=== PATIENT | male | born 1935 | race Caucasian/White ===

== ENCOUNTER 2016-09-18 06:15 | Day surgery (SDC) | payer MEDICARE ==
[~2016-09-18] VITALS: Ht 177.8 cm; Wt 84.0 kg
[2016-09-18] VITALS (17 sets, daily range): BP systolic 85–126; BP diastolic 46–79; PULSE 65–91; RESP 7–19; O2SAT 94–99
[2016-09-18] MEDS: GENTAMICIN IV SCH ×2 (06:00→07:51)
[2016-09-18] MEDS: DEXTROSE 5% IV SCH ×2 (06:00→07:51)
[2016-09-18] MEDS: Vancomycin 1 Gm/200 mL NS Premix IV SCH ×2 (06:00→06:50)
[~2016-09-18 06:15] MED LIST: BUPR100T7 PO; LISI40TA PO; NEBI5TAB8 PO; SIMV10TA4 PO
[2016-09-18] MEDS ORDERED: fentaNYL-PF 50 mCg/mL 2 mL Inj ONE (06:16)
[2016-09-18] MEDS: Lactated Ringer's 1,000 ML IV SCH ×2 (06:34→07:36)
--- NOTE | 2016-09-18 06:59 | PCM.HPANE ---
Patient Data Date of Service: Sep 18, 2016 Surgeon Admitting Provider: Attending Provider:Patel Bermeo MD Primary Care Physician:Mau Hardy MD Other Provider:Kevin Arellano Anesthesia Reason for Visit Malfunction Of Penile Prosthesis Ht/WT & BMI Height (Feet): 5 Height (Inches): 10 Weight (Kilograms): 86.18 Body Mass Index 27.00 Allergies Coded Allergies: ciprofloxacin (Verified Allergy, Severe, HEADACHE AND BACK PAIN, 09/18/16) Past Anesthesia History Anesthesia History: Denies:: Anesthesia Reactions, Malignant Hyperthermia Diabetes History Hx Diabetes?: Yes Type of Diabetes: Diet Controlled Glycemic Control: Diet Controlled Current Bedside Blood Glucose: 108 MRSA MRSA: No Medications Blood Thinner: Aspirin Hypertension Medication: Yes Home Meds Incl Beta Hany: Yes Date Beta Hany Taken: Sep 18, 2016 Time Beta Hany Taken: 429 Previous Beta Hany Dose >24: Previous Dose <24 Hours Reported Medications [place]-3 Fatty Acids (Fish Oil)500 Mg Capsule.dr500 Mg PO DAILY 09/18/16 Lisinopril 10 Mg Wdlcfu89 Mg PO DAILY 30 Days Ref 0 09/18/16 Bupropion ER (Wellbutrin SR)100 Mg Tablet.er100 Mg PO DAILY Ref 0 09/11/16 Simvastatin 10 Mg Uqnbsc07 Mg PO HS Ref 0 09/11/16 Nebivolol (Bystolic)5 Mg Tablet5 Mg PO DAILY Ref 0 09/11/16 Discontinued Reported Medications Lisinopril 40 Mg Mwoqal00 Mg PO DAILY 30 Days Ref 0 09/11/16 [Phosphatidyl] No Conflict Dlaqw891 Mg PO DAILY 09/01/11 Cholecalciferol-Expunged Drug, Do Not Renew! (Vitamin D3-Expunged Drug, Do Not Renew!)5,000 Unit Tablet5,000 Unit PO DAILY 09/01/11 [Lipoic Acid] No Conflict Efjdl913 Mg PO DAILY 09/01/11 [Cinnamon] No Conflict Check1,000 Mg PO DAILY 09/01/11 Flaxseed Oil (Flaxseed)1,000 Mg Capsule1,000 Mg PO DAILY 09/01/11 [place]-3 Fatty Acids/Fish Oil-Expunged, Do Not ([place] 3 Fish Oil-Expunged, Do Not Renew!)1 Cap.ec Capsule.dr1 Cap.ec PO BID 09/01/11 Lutein-Expunged Drug, Do Not Renew! 10 Mg Rxzqrq57 Mg PO DAILY 09/01/11 [I Caps] No Conflict Check1 Cap PO DAILY 09/01/11 Selenium-Expunged Drug, Do Not Renew! 200 Mcg Kntccuh22 Mcg PO DAILY 09/01/11 [Vision Health] No Conflict Check1 Tab PO DAILY 09/01/11 Ubidecarenone/Vit E Acetate (Co Q-10 100 Mg Softgel)1 Each Capsule1 Each PO DAILY 09/01/11 Vitamin B Complex/Folic Acid (Vitamin B-100 Complex Tablet)0.4 Mg Tablet0.4 Mg PO DAILY 09/01/11 MULTIVIT, IRON, MIN NO. 8, FA-Expunged Drug, (JCUJXTYQLUD-X-Rfzlefrr Drug, Do Not Renew!)1 Each Tablet1 Each PO DAILY 09/01/11 Lovastatin-Expunged Drug, Do Not Renew! 10 Mg Tablet5 Mg PO BID 09/01/11 Aspirin-Expunged Drug, Do Not Renew! 81 Mg Tab.chew81 Mg PO HS 04/26/10 Nebivolol-Expunged Drug, Do Not Renew! 5 Mg Tablet5 Mg PO AM 04/26/10 Bupropion-Expunged Drug, Do Not Renew! (Bupropion SR-Expunged Drug, Do Not Renew !)100 Mg Tablet.sa100 Mg PO BID 04/26/10 Lisinopril-Expunged Drug, Do Not Renew! 40 Mg Hnxpvc72 Mg PO HS 04/26/10 History History of ENT Problems?: Yes HEENT History: Positive for:: Hearing Problem (hx of cochlear implant ( acoustic neuroma surgery )) Denies:: Abnormal Airway Difficult Intubation Denture Type: Partial- Upper Partial- Lower Teeth Condition: Missing Teeth Hx of Heart Problems?: Yes Cardiovascular History: Positive for:: Abdominal Aortic Aneurism (thoracic - monitored by cardiology- stable, 3.9cm 12/2015) Atrial Fibrillation (PAF) Congestive Heart Failure Heart Murmur Hypertension Irregular Heartbeat (FREQUENT PREMATURE BEATS) Valvular Heart Disease (echo 2016- ef 55%, aortic valve sclerosis, no stenosis ) Hx of Respiratory Problem?: Yes Respiratory History: Positive for:: Asthma (hx of asthma, rare inhaler need ) COPD Dyspnea (at times) Denies:: Use of C-PAP Machine Hx Neurologic Problems?: Yes Other Neurological Pertinent: hx of acoustic neuroma surgery 1980s Hx of GI Problems?: No Hx of Problems?: Yes Genitourinary History: Positive for:: Urinary Tract Infection (prior hx of) Other Pertinent History: penile prosthesis malfunction current admission problem Male Hx: Positive for:: Prostate Problems (hx TURP) Denies:: Scrotal Mass Testicular Surgery Skin History: Denies:: History Skin Disorders? 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) Denies:: Cancer Endocrine Disease Thyroid Disease History Blood Transfusions: Positive for:: Blood Transfusions Denies:: Blood Transfuse Reaction Hx Diabetes: YesBedside Blood Glucose: 108 Hx Alcohol Use: NoHx Substance Use: NoHave You Smoked inLast 12 mo: No Stop/Bang Treated for Sleep Apnea?: Yes Do You Have a CPAP Machine?: Yes B- Body Mass Index > 35 kg/m2: No A- Age over 50: Yes N- Neck Large Circumference: No G- Gender Male: Yes JERONIMO Category 1: Yes (CPAP) Risk Assessment Category Category 1A: Patient has history of documented sleep apnea, and HAS NOT received any narcotic, sedative or anesthesia administration during this stay. Category 1B: Patient has history of documented sleep apnea, and HAS received any narcotic , sedative or anesthesia administration during this stay Category 2: Patient has SUSPECTED Obstructive Sleep Apnea, and HAS received any narcotic , sedative or anesthesia administration during this stay. Category 3: Patient has SUSPECTED Obstructive Sleep Apnea and HAS NOT received narcotic, sedative or anesthesia administration during this stay. Category 4: Outpatient in Procedural Areas with known sleep apnea or who screen positive for High Risk via the STOP/BANG questionnaire. Exam Exam General Appearance: Alert, Oriented X3, Cooperative, No Acute Distress HEENT/AIRWAY: MP 2, Other (multiple missing teeth - most upper. partials upper /lower) Lungs: Clear to Auscultation Heart: Regular Rate/Rhythm, No Murmurs/Rubs/Gallops Meds/Labs/Diagnostics Admission Meds Current Medications Lactated Ringer's (Lr) 1,000 ml @ 120 mls/hr Q8H20M IV Last administered on t 06:34; Start 09/18/16 at 05:00; Stop 09/18/16 at 13:19 Bedside Blood Glucose: 108 Plan Impression Patient chart reviewed, patient interviewed and anesthestic plan with risks, benefits, and alternatives discussed, and informed consent obtained. NPO per Anesth. Guidelines: Yes ASA Physical Status: ASA3 Severe Disease Anesthetic Plan: GA Bene/Risks/Altern/Consents: Yes HP Complete Prior to Induction: Yes Zane Salas DO Sep 18, 2016 06:59
[2016-09-18] MEDS ORDERED: LISI10TA PO (07:00)
[2016-09-18] MEDS ORDERED: OMEG500C PO (07:00)
[2016-09-18] MEDS ORDERED: Lactated Ringer's 500 ML IV PRN (08:39)
[2016-09-18] MEDS ORDERED: Lactated Ringer's 1,000 ML IV SCH (08:39)
[2016-09-18] MEDS ORDERED: Ondansetron 2 mg/mL 2 mL Inj IVPUSH PRN ×2 (08:40→13:05)
[2016-09-18] MEDS ORDERED: MetoCLOpramide 5 mg/mL 2 mL Inj IVPUSH PRN ×2 (08:40→13:05)
[2016-09-18] MEDS ORDERED: Phenylephrine 10,000 mCg/mL Inj IVPUSH PRN (08:40)
[2016-09-18] MEDS ORDERED: fentaNYL-PF 50 mCg/mL 2 mL Inj IVPUSH PRN (08:40)
[2016-09-18] MEDS ORDERED: Dexamethasone 4 mg/mL Inj IVPUSH PRN (08:40)
[2016-09-18] MEDS ORDERED: EPHEDrine Sulfate 50 mg/mL Inj IVPUSH PRN (08:40)
[2016-09-18] MEDS ORDERED: HYDROmorphone 1 mg/mL Inj IVPUSH PRN (08:40)
[2016-09-18] MEDS ORDERED: Bupivacaine-MPF 0.25% 30 mL Inj INFILTRATE ONE (08:41)
[2016-09-18] MEDS ORDERED: Gentamicin 40 mg/mL 2 mL Inj IRRIGATION ONE (08:42)
[2016-09-18] MEDS ORDERED: Vancomycin 1,000 mg Inj IRRIGATION ONE (08:43)
[2016-09-18] MEDS ORDERED: Lactated Ringer's 1,000 ML IV ONE (10:17)
--- NOTE | 2016-09-18 12:34 | PCM.SURGPO ---
Immediate Operative Note Date of Surgery: Sep 18, 2016 Pre Operative Diagnosis Erectile dysfunction, malfunctioning inflatable penile prosthesis Post Operative Diagnosis Erectile dysfunction, malfunctioning inflatable penile prosthesis Procedure Removal of 3-piece inflatable penile prosthesis, replacement of 3-piece inflatable penile prosthesis Surgeon and Contracting Manager Surgeon: Patel Bermeo MD Assistants: Gricelda Alanis MD Findings Old 3-piece inflatable penile prosthesis removed, and new AMS 700 LGX 3-piece inflatable penile prosthesis placed. Complications There were no periprocedural complications identified. Surgical Specimen Removed: No Specimen sent to Pathology: No Anesthetic Administered: GA Grafts, Implants: Other (16F Ambrocio catheter to straight drainage) Output, Estimated Blood Loss: 30 Blood Admin during surgery: No Additional information [facility] when stable for 23hr. overnight observation. Patel Bermeo MD Sep 18, 2016 12:34
[2016-09-18] MEDS ORDERED: Polyethylene Glycol (PEG) 17 Gm Powder PO PRN (13:05)
[2016-09-18] MEDS ORDERED: diphenhydrAMINE 25 mg Capsule PO PRN (13:05)
[2016-09-18] MEDS ORDERED: Vancomycin Dose per Pharmacist XX SCH (13:05)
[2016-09-18] MEDS ORDERED: Gentamicin Per Pharmacist XX ONE (13:05)
[2016-09-18] MEDS ORDERED: oxyCODONE-Acetamin 5-325 mg Tablet PO PRN (13:05)
--- NOTE | 2016-09-18 14:00 | PCM.ANEP1 ---
Post Anesthesia PACU Phase 1 Assessment Date of Service: Sep 18, 2016 Vital Signs Vital Signs Date Time Temp Pulse Resp B/P Pulse Ox O2 Delivery O2 Flow Rate FiO2 09/18/16 13:20 76 7 114/79 96 Room Air 09/18/16 13:05 71 13 96/65 94 Room Air 09/18/16 12:55 37.2 65 17 112/60 95 Room Air 09/18/16 12:45 76 14 107/71 95 Room Air 09/18/16 12:35 71 16 109/73 96 Room Air 09/18/16 12:30 37.0 65 17 110/63 97 Room Air 09/18/16 12:25 76 15 110/67 96 Room Air 09/18/16 12:20 75 18 108/79 96 Room Air 09/18/16 12:15 37.4 109/77 09/18/16 06:52 36.4 80 16 126/74 99 Room Air Anesthetic Administered: GA Level of Alertness: Awake, talking Pain: No Nausea or Vomiting: No CV Function & Hydration Stable: Yes Airway Device: Oxygen Delivery: Room Air Lungs: Clear to Auscultation PACU Phase 2 Assessment Complications: No Follow up Care: N/A Patient Instructions Provided: N/A Zane Salas DO Sep 18, 2016 14:00
[2016-09-18] MEDS: Insulin Human REGular 300 Unit/3 mL Inj SUBQ SCH ×2 (14:30→20:30)
[2016-09-18] MEDS: 0.9% Sodium Chloride 1,000 ML IV SCH (14:40)
[2016-09-18] MEDS ORDERED: Vancomycin Inj 1,000 MG in IV Premix 1 EACH IV ONE (15:00)
[2016-09-18] MEDS ORDERED: NEBIVOLOL 5 MG TABLET PO SCH (15:31)
--- NOTE | 2016-09-18 16:58 | PCM.CHPMED ---
Subjective Date of Service: Sep 18, 2016 Provider requesting consult: Patel Bermeo MD Primary Physician: Admitting Physician: Primary Care Physician: Mau Hardy MD Attending Physician: Patel Bermeo MD Admit Status: Admit to Red Team Chief Complaint: Chief Complaint: Postoperative History of Present Illness: Patient is a 2-year-old male with a history of diet-controlled diabetes, HFpEF 55%, PAF, AAA- stable, COPD not on any medication, history of UTIs, obstructive sleep apnea on CPAP, Hypertension, hyperlipidemia, BPH, erectile dysfunction presenting post-op repair and replacement of malfunctioning penile prosthesis. Patient had repair and replacement of penile prosthesis. Operation was without complications. Patient says that his pain currently is minimal. Patient says his diabetes is controlled with diet alone. He did not take his blood pressure medications this morning. Review of Systems: Constitutional: Denies: Chills, Fever, Malaise, Other, Sweats, Weakness Eyes: Denies: Blurred Vision, Conjunctive Inflammation, Double Vision, Eyelid Inflammation, Other, Pain, Redness, Vision Changes ENT: Denies: Dental Problems, Dysphagia, Ear Discharge, Ear Pain, Hoarseness, Membranes Dry, Nasal Congestion, Nose Discharge, Nose Pain, Other, Throat Pain, Tinnitus, Ulcers/Sores in Mouth Neck: Denies: Mass, Other, Pain, Swelling Cardiovascular: Denies: Chest Pain, Edema, Irregular Heart Rate, Other, Palpitations, Rapid Heart Rate, SOB on Exertion, SOB while laying flat Respiratory: Denies: Cough, Cough with bloody sputum, Other, SOB with Exertion , Shortness of Breath, Snoring, Sputum, Wake up Gasping for Breath, Wake up SOB , Wheezing Gastrointestinal: Denies: Abdominal Pain, Black tarry stools, Blood in stool ( red), Change in Appetite, Constipation, Diarrhea, Heartburn, Nausea, Other, Use of Laxatives, Vomiting Genitourinary: Reports: Change in Frequency, Decrease Urinary Output, Dysuria, Incontinence Reproductive Male: Reports: Erectile Dysfunction Neurological: Reports: Drooping Mouth, Denies: Change in LOC, Change in Speech, Confusion, Difficulty Walking, Dizziness, Double Vision, Incoordination, Localized Weakness, Numbness, Other, Seizures, Somnolence, Tremors, Vertigo Psychologic: Denies: Agitation, Anxiety, Depression, Insomnia, Other, PTSD- Post Traumatic Stress Disorder, Suicidal Thoughts Lymphatic: Denies: Adenopathy, Swollen Lymph Node Above Collarbone, Swollen Lymph Nodes in Neck, Tender Lymph Nodes [place], Tender Lymph Nodes Groin PMH Past Medical History T2DM- diet controlled. HFpEF 55%, PAF, AAA- stable, COPD not on any medication, history of UTIs, obstructive sleep apnea on CPAP, Hypertension, hyperlipidemia, BPH erectile dysfunction history of acoustic neuroma status post resection in the with a residual right-sided droop, Hearing Problem (hx of cochlear implant (acoustic neuroma surgery )) Bedside Blood Glucose: 108 Surgical History history of acoustic neuroma status post resection in the with a residual right-sided droop, Hearing Problem (hx of cochlear implant (acoustic neuroma surgery ) hx TURP total joints of both knees, thumb, shoulder; rotator cuff, Home Medications [place]-3 Fatty Acids (Fish Oil)500 Mg Capsule.dr500 Mg PO DAILY 09/18/16 Lisinopril 10 Mg Ciyvzj68 Mg PO DAILY 30 Days Ref 0 09/18/16 Bupropion ER (Wellbutrin SR)100 Mg Tablet.er100 Mg PO DAILY Ref 0 09/11/16 Simvastatin 10 Mg Dhtvrd46 Mg PO HS Ref 0 09/11/16 Nebivolol (Bystolic)5 Mg Tablet5 Mg PO DAILY Ref 0 09/11/16 Allergies: Coded Allergies: ciprofloxacin (Verified Allergy, Severe, HEADACHE AND BACK PAIN, 09/18/16) Family History Family History Mother heart attack at 88 Social History Hx Alcohol Use: NoHx Substance Use: NoHx Tobacco Use: Yes Smoking Status: Former Smoker Living Arrangement: with Family Exam Vital Signs Vital Sign - Last Date Time Temp Pulse Resp B/P Pulse Ox O2 Delivery O2 Flow Rate FiO2 09/18/16 16:37 36.8 82 19 109/67 95 Room Air Intake and Output 09/17/16 09/17/16 09/18/16 Cumulative From/Thru 15:00 23:00 07:00 09/11/16 12:02 - 09/18/16 06:55 Intake Total 200 ml 200 ml Balance 200 ml 200 ml Intake IV Total 200 ml 200 ml General: Alert, Oriented X3 Head: Normal Eyes: PERRLA Ears: Other (hearing loss in right ear) Mouth: Mouth Normal, Other (right-sided droop secondary to acoustic neuroma surgery) Neck: Supple Chest & Lungs: Chest Wall Normal, Clear to auscultation & percussion Cardiovascular: Exam Unremarkable, Regular Rate/Rhythm, Normal S1, Normal S2, Murmur Abdomen: Non-tender, Non-distended, Benign, No masses Genitourinary: Ambrocio Present Musculoskeletal: Unremarkable Extremities: No cyanosis/clubbing/edma bilat Skin: Wounds/Lacerations (left forearm small abrasion) Neurological: Grossly Neurologically Intact, Normal Speech, Strength Normal 4/ 4 ext, Sensation Intact, Reflexes Normal Lab and Diagnostics Result Diagram: 09/18/16 1315 09/18/16 1315 Assessment & Plan Assessment Patient is a 2-year-old male with a history of diet-controlled diabetes, HFpEF 55%, PAF, AAA- stable, COPD not on any medication, history of UTIs, obstructive sleep apnea on CPAP, Hypertension, hyperlipidemia, BPH, erectile dysfunction presenting post-op repair and replacement of malfunctioning penile prosthesis consulted for comanagement of medical issues. #Status post penile prosthesis placement postop day# 0 - Patient's pain is well-controlled - Continue with IV fluids however patient does have a history of heart failure with EF of 55% in 2016 so monitor for volume overload. - Patient functioning Ambrocio catheter in place. - IV antibiotics given gentamicin #T2DM- chronic, stable. diet controlled per patient. Never been on any medications. Will check blood sugars 3 times a day. Can provide sliding-scale insulin if needed. #HTN- chronic, stable-patient has brought home meds with him can continue Bystolic as patient on medication, lisinopril. #HFpEF of 55%- chronic, stable. Monitor for evidence of volume overload is getting IV fluids. On exam patient appears to be euvolemic. Patient is not taking any beta blockers. Continue with lisinopril. #obstructive sleep apnea on CPAP- chronic, active. Patient did not appear to be overly sedated on exam. -patient is brought their own CPAP machine which he can use tonight. Continue pulse ox monitoring. #COPD-not using inhalers at home however they are prescribed. She cannot recall which medications. Will order for DuoNeb when necessary #Paroxysmal atrial fibrillation- appears to be in sinus rhythm. His thought rate controlled and anticoagulated. Continue cardiac monitoring. #AAA- chronic, stable. #hyperlipidemia- patient takes simvastatin however not on formulary will substitute to atorvastatin. Problems: Pain Evaluation: Adequate Pain Control GI Prophylaxis: Not indicated VTE Mechanical Devices: Intermittant Pneumatic CD Resuscitation Status: CPR: Attempt Resuscitation Discharge Plan On discharge patient does not have any physical therapy needs and can return home. Pepe Velarde MD Sep 18, 2016 16:58
[2016-09-18] MEDS ORDERED: Gentamicin Inj 400 MG in Dextrose 5% 100 ML IV ONE (17:00)
[2016-09-18] MEDS ORDERED: Albuterol-Ipratropium 3 mL Inhalation Solution NEB PRN (17:15)
[2016-09-18] MEDS: buPROPion SR 100 mg ER12 Tablet PO SCH (17:35)
[2016-09-18] MEDS ORDERED: HYDROcodone-APAP 5-325 mg Tablet PO PRN (20:50)
[2016-09-18] MEDS ORDERED: 0.9% Sodium Chloride 500 ML IV ONE (23:05)
[2016-09-19] VITALS (7 sets, daily range): BP systolic 91–107; BP diastolic 49–69; PULSE 79–97; RESP 17–18; O2SAT 96–97
[2016-09-19] MEDS: Insulin Human REGular 300 Unit/3 mL Inj SUBQ SCH ×3 (02:30→14:04)
[2016-09-19 05:53] LABS: Mean Corpuscular Hemoglobin 29.2 pg (27.0-35.0); Mean Corpuscular Volume 92.4 fL (81-100)
[2016-09-19] MEDS ORDERED: Dextrose 10% 250 ML IV PRN (07:10)
[2016-09-19] MEDS: 0.9% Sodium Chloride 1,000 ML IV SCH (08:11)
--- NOTE | 2016-09-19 08:12 | PCM.PNSURG ---
Subjective Date of Service: Sep 19, 2016 Date of Service: Sep 19, 2016 Subjective: Patient reports mild penoscrotal and inguinal incisional pain (improved with Tylenol), no nausea, no vomiting, tolerating full PO, has not been OOB yet. Patient had possible SE (hypotension) after taking Percocet last night. Of note , patient was seen this morning. Objective Vital Sign- Last 8 Hours Date Time Temp Pulse Resp B/P Pulse Ox O2 Delivery O2 Flow Rate FiO2 09/19/16 06:19 36.4 79 17 104/67 97 Room Air 09/19/16 05:53 21 09/19/16 05:47 79 Intake and Output- Last 8 Hour 09/19/16 Cumulative From/Thru 07:00 09/11/16 12:02 - 09/19/16 06:18 Intake Total 2918 ml 5319 ml Output Total 4000 ml 5660 ml Balance -1082 ml -341 ml Intake Oral 2918 ml 3718 ml IV Total 1601 ml Output Urine Total 4000 ml 5600 ml Estimated Blood Loss 60 ml # Bowel Movements 0 0 General: Alert, Oriented X3, Cooperative, No Acute Distress Neck: Supple Lungs: Normal Air Movement Abdomen: Soft, Non-tender, Non-distended, Other (no rebound or guarding) SURGICAL WOUND : Wound Location/Description Scrotal fluff gauze dressing removed. Scrotal support left in place. R inguinal wound: dressing clean/dry/intact, +ecchymosis, no erythema or warmth, +appropriate incisional tenderness. Penoscrotal wound: dressing clean/dry/ intact, +ecchymosis, no erythema or warmth, +appropriate incisional tenderness. Penis and scrotum: mild edema. Neuro: Normal Speech, Sensation Intact Catheters: Urethral 2 Way Ambrocio (in place, draining clear yellow urine) Result Diagram: 09/19/1652809/19/16528 Assessment & Plan Impression POD #1, s/p removal and replacement of 3-piece inflatable penile prosthesis, afebrile, hemodynamically stable, doing well post-op Problems: Plan D/C Ambrocio catheter, then record all voids Tylenol PRN pain, [place] PRN breakthrough pain OOB to chair, then ambulate with assistance D/C IVF Discharge home today after patient voids. Discharge meds: Steedman, Colace, Keflex. Patient to RTC with me in 1.5 weeks for post-op visit and staple removal Hospitalist consultation and follow-up appreciated Patient was medically cleared for discharge home by hospitalist Dr. Velarde Case discussed with Dr. Velarde VTE Prophylaxis: SCDs Resuscitation Status: CPR: Attempt Resuscitation Patel Beremo MD Sep 19, 2016 08:12
[2016-09-19] MEDS: buPROPion SR 100 mg ER12 Tablet PO SCH (08:13)
[2016-09-19] MEDS ORDERED: NEBIVOLOL 10 MG TABLET PO SCH (11:20)
--- NOTE | 2016-09-19 11:50 | PCM.PNMED ---
Subjective Date of Service Sep 19, 2016 Subjective Patient had an episode of hypotension last night after receiving his pain medication. Received fluids overnight blood pressure this morning dropped again receiving [place]. Ambrocio has been removed. Patient says he is asymptomatic. Pain is minimal at this time per patient Exam Vital Signs Vital Sign - Last Date Time Temp Pulse Resp B/P Pulse Ox O2 Delivery O2 Flow Rate FiO2 09/19/16 11:26 86 09/19/16 11:12 91/49 09/19/16 10:06 36.9 18 96 Room Air 09/19/16 05:53 21 Intake and Output 09/18/16 09/18/16 09/19/16 Cumulative From/Thru 15:00 23:00 07:00 09/11/16 12:02 - 09/19/16 06:18 Intake Total 1401 ml 800 ml 2918 ml 5319 ml Output Total 760 ml 900 ml 4000 ml 5660 ml Balance 641 ml -100 ml -1082 ml -341 ml Intake Oral 800 ml 2918 ml 3718 ml IV Total 1401 ml 1601 ml Output Urine Total 700 ml 900 ml 4000 ml 5600 ml Estimated Blood Loss 60 ml 60 ml # Bowel Movements 0 0 Exam Gen: NAD, AOx3. HEENT: NCAT, PERRLA, EOMI, MMM, sclera anicteric. Neck: Soft, supple, symmetrical, no thyromegaly/JVD/LAD. Resp: CTAB, no R/R/W. CV: Irregular rate S1/S2, positive systolic murmur Abd: Soft, (+) BS, no guarding/rebound/organomegaly. No Ambrocio. Ext: +PP, -edema Skin: warm/dry/intact Neuro/Psych: No focal deficits, CN II-XII grossly intact. AAOx3, cooperative , appropriate mood/affect. IVs and Medications Medications Reviewed: Medications were reviewed in detail Lab and Diagnostics Result Diagram: 09/19/1629 09/19/16 0529 X-Rays, CTs and MRIs Date of Service: 09/11/16 1505 PROCEDURE: X-RAY CHEST, TWO VIEWS ([id number]) INDICATIONS: PRE OP, HYPERTENSION, ASTHMA TECHNIQUE: 2 views of the chest were acquired. COMPARISON: [facility], , CHEST 2VW, 04/21/2012, 17:28. FINDINGS: Surgical changes and devices: None. Lungs and pleura: No pleural effusions or pneumothorax. Lungs are clear. Mediastinum: Mediastinal contours are normal. Heart size is normal. Bones and chest wall: No suspicious bony abnormalities. Soft tissues appear unremarkable. IMPRESSION: No radiographic evidence of acute cardiopulmonary pathology. Assessment & Plan Patient is a 81 yo M with a history of diet-controlled diabetes, HFpEF 55%, PAF , AAA- stable, COPD not on any medication, history of UTIs, obstructive sleep apnea on CPAP, Hypertension, hyperlipidemia, BPH, erectile dysfunction presenting post-op repair and replacement of malfunctioning penile prosthesis consulted for comanagement of medical issues. #Status post penile prosthesis placement postop day# 1 - Continue with IV fluids however patient does have a history of heart failure with EF of 55% in 2016 so monitor for volume overload. - Patient functioning Ambrocio catheter in place. - IV antibiotics given gentamicin - Ambrocio catheter has been removed. Patient has had drop in blood pressure after receiving oral pain medications. Denies significant pain at this time. Would recommend continuing with Tylenol as needed upon discharge. #HTN- Not present on Admit, active. pt did not receive home med Bystolic as patient on medication yesterday. Patient had episodes of hypotension after receiving by mouth pain medications last night and this morning. Held a.m. doses of lisinopril and Bystolic. Patient received IV fluid boluses yesterday evening and has been on IV maintenance fluids since. - Drops in blood pressure are asymptomatic and likely secondary to narcotics. - We will try to control pain with Tylenol and repeat blood pressure -If repeat blood pressure is normotensive patient can still be safely discharged. -Should hold lisinopril until tomorrow. Patient should check his blood pressure before taking Bystolic tonight. #HFpEF of 55%- chronic, stable. Monitor for evidence of volume overload is getting IV fluids. On exam patient appears to be euvolemic. Patient is not taking any beta blockers. Continue with lisinopril. #T2DM- chronic, stable. diet controlled per patient. Never been on any medications. Will check blood sugars 3 times a day. She has not needed sliding scale coverage #obstructive sleep apnea on CPAP- chronic, active. Patient did not appear to be overly sedated on exam. -patient is brought their own CPAP machine which he can use tonight. Continue pulse ox monitoring. #COPD-not using inhalers at home however they are prescribed. She cannot recall which medications. Will order for DuoNeb when necessary #Paroxysmal atrial fibrillation- appears to be in sinus rhythm. His thought rate controlled and anticoagulated. Continue cardiac monitoring. #AAA- chronic, stable. #hyperlipidemia- patient takes simvastatin however not on formulary will substitute to atorvastatin. Problems: Pain Evaluation: Adequate Pain Control GI Prophylaxis: Not indicated VTE Mechanical Devices: Intermittant Pneumatic CD Resuscitation Status: CPR: Attempt Resuscitation Discharge Plan: Once blood pressure normalizes in stable condition safely discharged. Patient should hold lisinopril until tomorrow. Should take Bystolic only after checking blood pressure tonight. Recommend Tylenol as pain management which patient agrees with. GI Prophylaxis: Not indicated VTE Mechanical Devices: Intermittant Pneumatic CD Resuscitation Status: CPR: Attempt Resuscitation Pepe Velarde MD Sep 19, 2016 11:45
[2016-09-19] MEDS ORDERED: Codeine-APAP 30-300 mg Tablet PO PRN (13:05)
--- NOTE | 2016-09-19 14:12 | PCM.DISURG ---
Patel Bermeo MD 09/19/16 1412: Surgical Discharge Instruction Date of Service Sep 19, 2016 Dates of Hospitalization Date of Hospital Admission Sep 19, 2016 Providers Admitting Physician: Patel Bermeo MD Primary Care Physician: Mau Hardy MD Attending Physician: Patel Bermeo MD Discharge Diagnosis Discharge Diagnosis Erectile dysfunction, malfunctioning inflatable penile prosthesis Post Operative diagnosis Erectile dysfunction, malfunctioning inflatable penile prosthesis Diet Discharge Diet: Low fat, Low Sodium, Diabetic Activity Discharge Activity-General: No driving while taking narcotic, Other (No strenuous exercise/activity, moderate or heavy lifting (more than 10 lbs.), straining, or sexual activity for 6 weeks. Try to stay off your feet for the next 3 days.) Dressing and Incisional Care Dressing Care: Keep dressing clean, dry & intact, Other (Remove dressings in 2 days (leave Steri-strips in place). Continue to wear scrotal support at all times.) Hygiene: Other (May shower after 2 days. No bath/pool/spa for 4 weeks.) Additional Instructions Discharge Instructions Do not take any blood-thinning medications (Aspirin, Ibuprofen, Motrin, Advil, Naproxen, Aleve, fish oil, and Vitamin E) for 7 days. Keep penis on your abdomen and pointing straight up. Follow Up Plan Follow-up Provider (F9): Patel Bermeo MD Follow-up appointment: Weeks (1.5 weeks for post-op visit and staple removal) Call your provider for: Fever, Chills, Increasing abdominal pain, Vomiting, Increasing wound pain, Warmth to touch, Discharge @ incision, pus discharge, Other (Pain uncontrolled by pain medications) Pepe Velarde MD 09/19/16 1423: Surgical Discharge Instruction Additional Instructions Additional Instructions Check blood pressure before taking blood pressure medications tonight. If less than 100/70 to hold off taking medications. Will likely be able to resume normal regimen in the morning. Patel Bermeo MD Sep 19, 2016 14:12 Pepe Velarde MD Sep 19, 2016 14:23
[2016-09-19] MEDS ORDERED: ACET1TAB42 PO (14:21)
[2016-09-19] MEDS ORDERED: SENN-133 PO (14:21)
--- NOTE | 2016-09-21 09:36 | OP ---
[address] [address] OPERATIVE REPORT PATIENT: SARITA ROLDAN : 1935 MR#: [id number] ADMIT: 09/18/2016 JOB ID: [id number] DATE OF SURGERY: 09/18/2016 PREOPERATIVE DIAGNOSIS(ES): Erectal dysfunction, malfunctioning inflatable penile prosthesis. POSTOPERATIVE DIAGNOSIS(ES): Erectal dysfunction, malfunctioning inflatable penile prosthesis. PROCEDURE: 1. Removal of three piece inflatable penile prosthesis. 2. Replacement of three-piece inflatable penile prosthesis. SURGEON: Patel Bermeo MD ASSISTANTS: Gricelda Alanis MD ANESTHESIA: General. ESTIMATED BLOOD LOSS: 30 mL. SPECIMENS: None. DRAINS: A 16-[place] Ambrocio catheter to straight drainage. COMPLICATIONS: None. CONDITION: Stable. FINDINGS: Old three piece inflatable penile prosthesis was removed and a new AMS 700 LGX 3-piece inflatable penile prosthesis was placed. INDICATIONS: The patient is an 81-year-old male with erectile dysfunction and malfunctioning inflatable penile prosthesis, status post a three piece inflatable penile prosthesis placement in [place] [address] Prateek Fam. The inflatable penile prosthesis was working well until November 2015 when it stopped working well and the patient became unable to inflate the inflatable penile prosthesis. The patient states he wishes to be sexually active and wishing to have removal and replacement of three piece inflatable penile prosthesis. The patient now presents for removal and replacement of three piece inflatable penile prosthesis. DESCRIPTION OF PROCEDURE: Patient was brought to the operating room and placed supine on operating room table. The patient was given vancomycin and gentamicin IV antibiotics. Sequential compression device boots were placed. General anesthesia was administered. The patient was left in supine position. The patient was prepped and draped in standard surgical fashion. Of note, a 10 minute prepping and scrubbing of the surgical area was performed including with both Betadine mechanical scrub prep and ChloraPrep scrub prep. A retractor was placed. A 16-[place] Ambrocio catheter was placed through the urethra and into the bladder without difficulty. Ambrocio catheter balloon was inflated with 10 mL sterile water. Ambrocio catheter was placed to straight drainage. Again patient was in supine position. A penoscrotal incision was made through the previous a penoscrotal incision from the prior inflatable penile prosthesis implantation. This was approximately 4 cm in length and this was a vertical longitudinal penoscrotal incision approximately 2 cm below the penoscrotal junction again through the previous scar. Incision was made sharply using a #15 blade through the skin. The incision was carried down through the dartos fascia using Bovie electrocautery and the inferior fascia flap was dissected off the urethra and both corporal bodies. Again a ring retractor had been placed. The tubing to the corporal cylinders had been identified and were traced to the corpora. The corporotomy was made at the site of the tubing and these were vertical corporotomies approximately 2 cm in diameter. Both left and right old cylinders were removed without difficulty. Of note, inflatable penile prosthesis tubing in the penoscrotal area had been seen to have a small rupture in the tubing in the upper scrotum. This had been seen upon initial identification of the tubing, thus this was identified to be the cause of the malfunctioning of the inflatable penile prosthesis. After both cylinders were removed and thus two corporotomies had been made. Then two horizontal mattress sutures of 2-0 Vicryl had been placed on each side of the two corporotomies. No dilation of the distal corpora or the proximal corpora was needed to be performed secondary to the old cylinders having already been in place secondary to the prior inflatable penile prosthesis placement. Hegar dilator was able to be placed without difficulty into the distal corpora and proximal corpora of each side. Measurement was made from the distal end of the corporotomy and this was seen to be 11 cm on both left and right sides measurement of the distal corpora. The Hegar dilator was able to be placed into the proximal corpora without difficulty and the measurement was made from the proximal end of the corporotomy and was seen to be 11 cm on both left and right sides. Thus the total length of the corporotomy for both left and right sides was 22 cm. An 18 cm cylinder with forced with 4 cm of rear-tip travel registered nurse oncology was used for both left and right sides. The three-piece inflatable penile prosthesis which was placed was then AMS 700 LGX three piece inflatable penile prosthesis with 18 cm in length cylinders with 4 cm rear-tip extenders for each side with a 65 mL reservoir. Of note, prior to placing the cylinders the entire old penile prosthesis had been removed specifically the cylinders both left and right. Corporal cylinders had been removed as previously described. Then, the tubing was followed to the old reservoir which was on the right side. Incision was made through the prior incision which is a transverse incision in the right inguinal area. Incision was made sharply using a #15 blade through the skin and subcutaneous tissue. The fascia was incised using Bovie electrocautery. The tubing to the reservoir was identified and the tubing was traced to the reservoir which was on the right side in the retropubic space. Of note, the bladder was emptied via the Ambrocio catheter at the end of the case. Again the tubing was traced into the old reservoir which was on the right side in the retropubic space. After the tubing and reservoir were dissected out the reservoir was able to be removed in its entirety. The space where the reservoir had been in the retropubic space in the right side was palpated and the back of the symphysis pubis could be palpated and it appeared to be adequate space. Thus attention was directed to removing the scrotal pump and the tubing to the scrotal pump was traced to the scrotal pump and dissected out and the scrotal pump was removed and thus the entire old three piece inflatable penile prosthesis was which was AMS 700 was explanted completely through its entirety and thus both left and right corporal cylinders, scrotal pump, reservoir, and all the tubing was removed in its entirety and discarded. Of note, no sign of infection was seen. Thus the device was removed entirely. The wound was cleansed with a series of three antiseptic solutions. Vigorous irrigation of the wound of all of the areas including the corpora, the scrotum and the right retropubic space where the reservoir had been and all the whole entire wound and vigorous irrigation was performed. This was done using three antiseptic solutions starting with a Betadine solution followed by a hydrogen peroxide solution followed by a vancomycin/gentamicin antibiotic mixture and all the wounds and areas were pressure washed using a bulb syringe using the three solutions, making sure that every part of the wound was washed vigorously. After the series of antiseptic washes fresh drapes were placed and the surgeons and assistants and scrub nurses gloves were changed to new gloves. After this had been performed then a new AMS 700 LGX three piece penile prosthesis was placed again with the cylinders being 18 cm in length with 4 cm rear-tip extenders used with a 65 mL reservoir. The proximal distal corpora had been prepared and measured as previously stated. The prosthesis was filled with normal saline. Then the solution was removed from the cylinders and then the solution was removed from the prosthesis for placement. The right cylinder was inserted distally using a Anisha cylinder pin inserter and this was an 18 cm cylinder with a 4 cm rear-tip travel registered nurse oncology and then the cylinder was inserted proximally. The cylinder was seen to lie flat and the cylinder tips were palpated in the glans and the cylinder was seen to be good position. Then the other cylinder was inserted in a similar fashion distally using Anisha cylinder pin inserter. This was also an 18 cm cylinder with a 4 cm rear-tip travel registered nurse oncology. The cylinder was inserted proximally. The cylinder was also was seen to lie flat and the cylinder tip was also palpated to be in the glans in good position. Both cylinders were seen to be straight and in good position. Both corporotomies were closed by tying the opposing previously-placed 2-0 Vicryl horizontal mattress sutures. The cylinders were filled with normal saline and seen to be in good position and then normal saline solution was removed from the cylinders. A second incision was made through the dartos fascia over the midline of the scrotum. A subdartos pouch was developed for the pump and this subdartos pouch was in a different location as old scrotal pump, thus was in a new location. This is subdartos pouch. Then the scrotal pump was passed into the subdartos pouch. The top of this subdartos pouch was closed using a running 2-0 Vicryl suture. A 60 mL syringe filled with normal saline was attached to the reservoir tubing acting as a temporary reservoir. The device was inflated and the cylinders were inflated and then the device was deflated. Of note both cylinders would be in excellent position with good inflation of the device. Then the new 65 mL reservoir was placed into the old reservoir site in the retropubic space on the right side with the aid of a nasal speculum. Correct placement of the reservoir in the retropubic space was confirmed by palpating the back of the symphysis pubis and again a long blade nasal speculum was used to aid in this and the reservoir was empty when it was placed. The reservoir was filled with 65 mL of normal saline. The correct positioning of the reservoir beneath the fascia was confirmed by palpation and there was seen to be no backflow of the solution from the reservoir into the syringe confirming adequate space for the reservoir in the retropubic space. The tubing hub of the reservoir was positioned so that it was protruding through the fascia defect. A connection was made between the reservoir and the pump. Of note, the distal portions of each cylinder had been seen to be in the distal corpus cavernosum under the mid glans penis earlier during the case and again a back pressure test had been done for the reservoir. The reservoir tubing had been brought down from the inguinal incision down to the area of the penoscrotal incision and the reservoir tubing was brought down into the incision in the upper scrotum with a connection to the pump. The reservoir tubing was made over a straight connector. Thus both cylinders had been placed. Corporotomies had been closed as previously described. The scrotal pump had been placed and the reservoir had been placed. Connection had been made. The tissue was closed over the tubing in the right inguinal area over the tubing using running 3-0 Vicryl suture. The tissue was closed over the tubing in the upper scrotum and penoscrotal area using running 3-0 Vicryl sutures. Excellent hemostasis had been achieved using Bovie electrocautery. Then dartos fascia was closed using 3-0 Vicryl sutures. Local anesthesia in the form of 0.25% plain Marcaine and 1% plain lidocaine was administered subcutaneously for local anesthesia for both incisions. Then for the penoscrotal incision the skin was closed using a running subcuticular 4-0 Monocryl suture for the right inguinal incision. The skin was closed using alexandra. A 16-[place] Ambrocio catheter was left to straight drainage. The skin was cleaned and dried. Sterile dressings, scrotal fluff, gauze dressing, and Kerlix gauze dressing and a scrotal support were applied. The penis was placed on the patient's lower abdomen pointing straight up vertically. The patient was awakened from general anesthesia and transferred to the recovery room in stable condition. The patient tolerated the procedure well removal of three piece inflatable penile prosthesis and replacement of three piece inflatable penile prosthesis was performed. POSTOPERATIVE PLAN: The patient to be transferred to a med/surg bed when stable for 23-hour overnight observation. Will continue vancomycin and gentamicin IV antibiotics overnight.
== END 2016-09-19 18:07 | disposition home or self-care (01) ==
LOC: SAS 06:15 → OSC 14:21 → SAS 09-19 18:07
PROVIDERS: ATTEND Urology
DX: T83.490A Other mechanical complication of implanted penile prosthesis, initial encounter (principal); N52.9 Male erectile dysfunction, unspecified; I48.91 Unspecified atrial fibrillation; I35.0 Nonrheumatic aortic (valve) stenosis; J45.909 Unspecified asthma, uncomplicated; I50.9 Heart failure, unspecified; J44.9 Chronic obstructive pulmonary disease, unspecified; I11.0 Hypertensive heart disease with heart failure; E11.9 Type 2 diabetes mellitus without complications; N40.1 Benign prostatic hyperplasia with lower urinary tract symptoms; N39.46 Mixed incontinence; F32.9 Major depressive disorder, single episode, unspecified; I47.2 Ventricular tachycardia; Z95.2 Presence of prosthetic heart valve; Z87.891 Personal history of nicotine dependence
CPT/HCPCS: 36415; 54410; 80048; 85014; 85018; 85027; 94640; C1813; J1580; J1815; J2250; J3010; J3370; J7030; J7040; J7050; J7120